=== PATIENT | female | born 1990 | race Hispanic/Latino ===

== ENCOUNTER 2016-05-22 10:48 | Emergency (ER) | payer OTHER ==
[2016-05-22] MEDS ORDERED: METOCLOPRAMIDE INJ 10MG/2ML VIAL (J2765) As Ordered ONE (11:29)
[2016-05-22 12:08] LABS: MEAN CORPUSCULAR HEMOGLOBIN 32.3 pg (27.0-33.0); MEAN CORPUSCULAR HGB CONC 35.3 g/dl (32.0-36.5); MEAN CORPUSCULAR VOLUME 91.6 fl (80.0-96.0); WHITE BLOOD COUNT 10.4 K/mm3 (4.0-10.0)
[2016-05-22 12:29] LABS: AMYLASE 44 U/L (25-115)
[2016-05-22 12:47] LABS: ALBUMIN 3.8 GM/DL (3.2-5.2); ALBUMIN/GLOBULIN RATIO 1.09 (1.00-1.93); ALKALINE PHOSPHATASE 64 U/L (45-117); ALT/SGPT 28 U/L (12-78); ANION GAP 10 MEQ/L (8-16); AST/SGOT 8 U/L (15-37); BILIRUBIN,TOTAL 0.5 MG/DL (0.2-1.0); BLOOD UREA NITROGEN 6 MG/DL (7-18); CALCIUM LEVEL 8.8 MG/DL (8.5-10.1); CARBON DIOXIDE LEVEL 23 MEQ/L (21-32); CHLORIDE LEVEL 106 MEQ/L (98-107); CREATININE FOR GFR 0.54 MG/DL (0.55-1.02); GLOMERULAR FILTRATION RATE > 60.0 (>60); GLUCOSE, FASTING 85 MG/DL (70-105); HCG, SERUM QUANTITATIVE 62819 MIU/ML; POTASSIUM SERUM 3.8 MEQ/L (3.5-5.1); SODIUM LEVEL 139 MEQ/L (136-145); TOTAL PROTEIN 7.3 GM/DL (6.4-8.2)
--- NOTE | 2016-05-22 12:54 | REP ---
Clinical: Dating and viability. Technique: Abdominal pain Findings: Single live early intrauterine is appreciated. Gestational sac with yolk sac and pole identified. [place]-rump length of this is 4.1 cm corresponds to 11 weeks 0 days gestational age with estimated date of delivery 12/11/2016. heart rate equals 160 beats per minute. Images suggest midgut herniation possibly herniation into the base of the umbilical cord. Follow-up examination is then is recommended. Impression: Single live early intrauterine at 11 weeks 0 days gestational age. Findings suggesting midgut herniation. Follow-up is recommended. Signed by Ryan Reynolds MD 05/22/2016 12:45 P
[2016-05-22] MEDS ORDERED: NITROFURANTOIN (MACROBID) 100 MG CAP As Ordered ONE (13:59)
--- NOTE | 2016-05-22 14:09 | EDDOCDS ---
Physician Documentation [facility] Name: Kenton Ng Age: 26 yrs Sex: Female : 1990 Arrival Date: 05/22/2016 Time: 10:48 Bed I3 / M3 Private MD: Kanu [facility] Disposition: 05/22/16 13:39 Discharged to Home/Self Care. 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 - Condition is Stable. - Discharge Instructions: Medicines During , First Trimester of , Dqof-ok-Fkby, Nausea and Vomiting, Kntw-oh-Orbu, Urinary Tract Infection, Vwuv-qv-Anko, Abdominal Pain During , Srte-xw-Ynlp, and Urinary Tract Infection. - Prescriptions for Reglan 10 mg Oral Tablet - take 1 tablet by ORAL route every 6 hours take 30 minutes before meals and at bedtime; 20 tablet. Macrobid 100 mg Oral Capsule - take 100 milligram by ORAL route every 12 hours for 10 days; 20 capsule. Tylenol 325 mg Oral Tablet - take 2 tablets by ORAL route every 6 hours as needed; 30 tablet. - Medication Reconciliation, Local Pharmacy Hours form. - Follow up: [facility] [place]; When: 1 - 2 days; Reason: Further diagnostic work-up, Recheck today's complaints, Continuance of care. Follow up: Emergency Department; Reason: Worsening of conditions. - Problem is new. - Symptoms have improved. Historical: - Allergies: PENICILLINS; - Home Meds: 1. Vitamin Oral tab 1 tab once daily - PMHx: none; - PSHx: none; - Social history: Smoking status: Patient states was never smoker of tobacco. Preferred Language: Tamaz[place], The patient speaks a little Upper Sorbian. - Family history: Not pertinent. - : The pt / caregiver states he / she is not on anticoagulants. Home medication list is obtained from the patient. - Exposure Risk Screening:: None identified. 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 ef1 11:09 Undress patient appropriately for examination ordered. ef1 11:09 Metoclopramide 10 mg IV at 40 mg/hr once over 15 mins ordered. ef1 11:09 NS 0.9% 1000 ml IV at bolus once ordered. ef1 11:10 Complete Blood Count Ordered. EDMS 11:10 Hcg, Serum Quantitative Ordered. EDMS 11:10 Urinalysis Ordered. EDMS 11:10 Complete Comphrensive Metabolic Ordered. EDMS 11:10 Urine Culture Ordered. EDMS 11:10 US 1st trimester Ordered. EDMS 11:10 Type & Screen Ordered. EDMS 11:23 Lipase Ordered. EDMS 11:23 Amylase Ordered. EDMS 12:43 [facility] Payment Agreement was scanned into [employer] and attached to record. jp5 12:43 Financial registration complete. jp5 13:35 Complete Blood Count Reviewed. ef1 13:35 Urinalysis Reviewed. ef1 13:35 Complete Comphrensive Metabolic Reviewed. ef1 13:35 Hcg, Serum Quantitative Reviewed. ef1 13:35 Type & Screen Reviewed. ef1 13:35 Lipase Reviewed. ef1 13:35 Amylase Reviewed. ef1 13:35 US 1st trimester Reviewed. ef1 13:37 Nitrofurantoin 100 mg PO once ordered. ef1 Administered Medications: 11:48 Drug: Metoclopramide 10 mg [metoclopramide 5 mg/mL injection solution] Route: IV; Rate: dls 40 mg/hr; Infused Over: 15 mins; Site: right antecubital; 13:01 Follow up: IV Status: Completed infusion dls 11:48 Drug: NS 0.9% 1000 ml [sodium chloride 0.9 % intravenous solution] Route: IV; Rate: dls bolus; Site: right antecubital; 13:01 Follow up: IV Status: Completed infusion dls 14:06 Drug: Nitrofurantoin 100 mg Route: PO; ms2 Signatures: Dispatcher [employer] EDMS Kingston Howard RN RN ms2 Khushbu Modi RN RN Arsh Tomlinson, RN RN mlb1 Edith Gill, PA-C PA-C ef1 Kinjal Kaplan jp5 The chart was reviewed and I authenticate all verbal orders and agree with the evaluation and treatment provided.Attachments: 12:43 [facility] Payment Agreement jp5 MTDD
--- NOTE | 2016-05-22 14:09 | EDDOCDS ---
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 Adult Sepsis mlb1 Screening: The patient does not have new or worsening altered mentation. Patient's respiratory rate is less than 22. Systolic blood pressure is greater than 100. Patient has a qSOFA score of 0- Negative Sepsis Screen. Suicide/Homicide risk assessment- the patient denies having any suicidal and/or homicidal ideations and does not present with any other emotional, behavioral or mental health complaints. Status: The patient is a dependent. Transition of care: patient was not received from another setting of care. 10:53 Acuity: AKIRA Level 3 mlb1 10:53 Method Of Arrival: Walkin/Carried/Asstd mlb1 Triage Assessment: 10:55 General: Appears in no apparent distress, Behavior is anxious, cooperative. Pain: mlb1 Denies pain. Pt Declines HIV testing. GI: Reports nausea, vomiting. 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 Vitamin Oral tab 1 tab once daily - PMHx: none; - PSHx: none; - Social history: Smoking status: Patient states was never smoker of tobacco. Preferred Language: French, The patient speaks a little Northern Irish. - Family history: Not pertinent. - : The pt / caregiver states he / she is not on anticoagulants. Home medication list is obtained from the patient. - Exposure Risk Screening:: None identified. Screenin:51 Screening information is obtained from the patient. Fall risk: No risks identified. dls Assistance ADL's: requires no assistance with activities of daily living. Abuse/DV Screen: The patient / caregiver reports he/she is: not in a situation that causes fear, pain or injury. Nutritional screening: No deficits noted. Advance Directives: Currently, there is no health care proxy. There is no active DNR order. There is no living will. There is no Power of General Dentist. Advance directive information has not previously been placed in an [facility] medical record. home support is adequate. Assessment: 11:50 General: Appears slender, uncomfortable, well developed, well nourished, well groomed, dls Behavior is cooperative. Neurological: No deficits noted. EENT: No deficits noted. Cardiovascular: No deficits noted. Respiratory: No deficits noted. GI: Abdomen is flat, Pt is actively vomiting clear fluid, Bowel sounds present X 4 quads. Abd is non tender X 4 quads Reports nausea, vomiting. : No deficits noted. Derm: No deficits noted. Musculoskeletal: No deficits noted. 14:06 Adult Sepsis Screening: The patient does not have new or worsening altered mentation. ms2 Patient's respiratory rate is less than 22. Systolic blood pressure is greater than 100. Patient has a qSOFA score of 0- Negative Sepsis Screen. General: Appears in no apparent distress. Pain: Denies pain. Neurological: Level of Consciousness is awake, alert, obeys commands. Respiratory: No deficits noted. Airway is patent Respiratory effort is even, unlabored, Respiratory pattern is regular, symmetrical. Derm: Skin is pink, warm & dry. Musculoskeletal: Range of motion intact in all extremities. Vital Signs: 10:49 BP 121 / 74; Pulse 80; Resp 18; Temp 96.0(O); Pulse Ox 100% on R/A; Weight 52.62 kg (R);elp 13:31 BP 96 / 55; Pulse 71; Resp 20; Temp 98.3(O); Pulse Ox 100% ; Pain 0/10; ls3 Vitals: 10:49 Log In Time: May 22, 2016 at 10:47. elp ED Course: 10:49 Patient visited by Zonia Powell PCA. elp 10:49 RALPH Bobby is Private Physician. elp 10:49 Patient moved to Waiting elp 10:51 Patient visited by Zonia Powell PCA. elp 10:51 Patient moved to Pre RCE elp 10:52 Patient moved to Triage 2 mlb1 10:53 Patient visited by Arsh Pastor RN. mlb1 10:53 Triage Initiated mlb1 10:57 Patient visited by Arsh Pastor RN. mlb1 10:59 Edith Gill [facility]C [facility]. ef1 10:59 Mariama Davila MD is Attending Physician. ef1 11:01 Patient visited by Edith Gill PA-C. ef1 11:14 Patient moved to I3 / M3 rs6 11:48 Patient visited by Edith Gill PA-C. ef1 11:48 Amylase Sent. dls 11:48 Lipase Sent. dls 11:48 Type & Screen Sent. dls 11:48 Complete Comphrensive Metabolic Sent. dls 11:49 Complete Blood Count Sent. dls 11:49 Hcg, Serum Quantitative Sent. dls 11:51 The patient / caregiver is instructed regarding the plan of care and ED course. dls 11:51 Inserted saline lock: 20 gauge in right antecubital area and blood collected. The dls patient tolerated the procedure well. No procedures done that require assistance. 12:01 Patient moved to Ultrasound hgl 12:17 Patient moved to I3 / M3 hgl 12:20 Patient visited by Edith Gill PA-C. ef1 12:43 [facility] Payment Agreement was scanned into [employer] and attached to record. jp5 12:55 US 1st trimester Returned. EDMS 13:07 Patient visited by Edith Glil PA-C. ef1 13:35 Patient visited by Edith Gill PA-C. ef1 13:39 Keily Lam, OB is Referral Physician. ef1 14:05 Patient visited by Kingston Howard RN. ms2 14:07 The patient / caregiver is instructed regarding the plan of care and ED course. ms2 14:07 Discontinued IV intact, bleeding controlled, pressure dressing applied, No ms2 redness/swelling at site. Administered Medications: 11:48 Drug: Metoclopramide 10 mg [metoclopramide 5 mg/mL injection solution] Route: IV; Rate: dls 40 mg/hr; Infused Over: 15 mins; Site: right antecubital; 13:01 Follow up: IV Status: Completed infusion dls 11:48 Drug: NS 0.9% 1000 ml [sodium chloride 0.9 % intravenous solution] Route: IV; Rate: dls bolus; Site: right antecubital; 13:01 Follow up: IV Status: Completed infusion dls 14:06 Drug: Nitrofurantoin 100 mg Route: PO; ms2 Intake: 14:06 PO: 120.00ml (Water); IV: 1000.00ml (NS); Total: 1120.00ml. ms2 14:06 voided x1 in ed ms2 Order Results: Lab Order: Complete Blood Count; SPEC'M 05/22/16 11:45 Test: WHITE BLOOD COUNT; Value: 10.4; Range: 4.0-10.0; Abnormal: Above high normal; Units: K/mm3; Status: F Test: RED BLOOD COUNT; Value: 3.88; Range: 4.00-5.40; Abnormal: Below low normal; Units: M/mm3; Status: F Test: HEMOGLOBIN; Value: 12.5; Range: 12.0-16.0; Units: g/dl; Status: F Test: HEMATOCRIT; Value: 35.6; Range: 36.0-47.0; Abnormal: Below low normal; Units: %; Status: F Test: MEAN CORPUSCULAR VOLUME; Value: 91.6; Range: 80.0-96.0; Units: fl; Status: F Test: MEAN CORPUSCULAR HEMOGLOBIN; Value: 32.3; Range: 27.0-33.0; Units: pg; Status: F Test: MEAN CORPUSCULAR HGB CONC; Value: 35.3; Range: 32.0-36.5; Units: g/dl; Status: F Test: RED CELL DISTRIBUTION WIDTH; Value: 13.0; Range: 11.5-14.5; Units: %; Status: F Test: PLATELET COUNT, AUTOMATED; Value: 171; Range: 150-450; Units: k/mm3; Status: F Lab Order: Hcg, Serum Quantitative; SPEC'M 05/22/16 11:45 Test: HCG, SERUM QUANTITATIVE; Value: 14118; Units: MIU/ML; Status: F Test Note: ; GESTATIONAL AGE APPROXIMATE HCG RANGE (MIU/ML) 0.2-1 WEEK 5-50 1-2 WEEKS 50-500 2-3 WEEKS 100-5,000 3-4 WEEKS 500-10,000 4-5 WEEKS 1,000-50,000 5-6 WEEKS 10,000-100,000 6-8 WEEKS 15,000-200,000 2-3 MONTHS 10,000-100,000 NON FEMALES LESS THAN 3.0 Patient samples may contain human heterophilic antibodies that could react with immunoassays to give falsely elevated or depressed results. This assay has been designed to minimize interference from heterophilic antibodies. Elevated hCG levels have also been associated with trophoblastic disease and nontrophoblastic neoplasms. The possibility of having these diseases should be considered before a diagnosis of is made. This test is not intended for use as a surrogate marker for aiding in the diagnosis or monitoring the treatment of cancer patients. Siemens ResearchGate methodology. Lab Order: Urinalysis; SPEC'M 05/22/16 11:14 Test: APPEARANCE, URINE; Value: HAZY; Range: CLEAR; Status: F Test: COLOR, URINE; Value: FABRICE; Range: YELLOW; Status: F Test: PH,URINE; Value: 7.0; Range: 5.0-9.0; Units: UNITS; Status: F Test: SPECIFIC GRAVITY URINE AUTO; Value: 1.027; Range: 1.002-1.035; Status: F Test: PROTEIN, URINE AUTO; Value: 1+; Range: NEGATIVE; Abnormal: Above high normal; Units: mg/dL; Status: F Test: GLUCOSE, URINE (UA) AUTO; Value: NEGATIVE; Range: NEGATIVE; Units: mg/dL; Status: F Test: KETONE, URINE AUTO; Value: TRACE; Range: NEGATIVE; Abnormal: Above high normal; Units: mg/dL; Status: F Test: UROBILINOGEN, URINE AUTO; Value: 0.2; Range: 0.0-2.0; Units: mg/dL; Status: F Test: BILIRUBIN, URINE AUTO; Value: NEGATIVE; Range: NEGATIVE; Status: F Test: NITRITE, URINE AUTO; Value: NEGATIVE; Range: NEGATIVE; Status: F Test: LEUKOCYTE ESTERASE, URINE AUTO; Value: 2+; Range: NEGATIVE; Abnormal: Above high normal; Status: F Test: BLOOD, URINE BLOOD; Value: NEGATIVE; Range: NEGATIVE; Status: F Test: WBC, URINE AUTO; Value: 1; Range: 0-3; Units: /HPF; Status: F Test: RBC, URINE AUTO; Value: 2; Range: 0-3; Units: /HPF; Status: F Test: BACTERIA, URINE AUTO; Value: NEGATIVE; Range: NEGATIVE; Status: F Test: SQUAMOUS EPITHELIAL CELL UR AU; Value: 17; Range: 0-6; Units: /HPF; Status: F Test: MUCUS, URINE; Value: SMALL; Range: NEGATIVE; Status: F Test: HYALINE CAST, URINE AUTO; Value: 0; Range: 0-1; Units: /LPF; Status: F Lab Order: Complete Comphrensive Metabolic; SPEC'M 05/22/16 11:45 Test: GLUCOSE, FASTING; Value: 85; Range: 70-105; Units: MG/DL; Status: F Test: BLOOD UREA NITROGEN; Value: 6; Range: 7-18; Abnormal: Below low normal; Units: MG/DL; Status: F Test: CREATININE FOR GFR; Value: 0.54; Range: 0.55-1.02; Abnormal: Below low normal; Units: MG/DL; Status: F Test: GLOMERULAR FILTRATION RATE; Value: > 60.0; Range: >60; Status: F Test: SODIUM LEVEL; Value: 139; Range: 136-145; Units: MEQ/L; Status: F Test: POTASSIUM SERUM; Value: 3.8; Range: 3.5-5.1; Units: MEQ/L; Status: F Test: CHLORIDE LEVEL; Value: 106; Range: 98-107; Units: MEQ/L; Status: F Test: CARBON DIOXIDE LEVEL; Value: 23; Range: 21-32; Units: MEQ/L; Status: F Test: ANION GAP; Value: 10; Range: 8-16; Units: MEQ/L; Status: F Test: CALCIUM LEVEL; Value: 8.8; Range: 8.5-10.1; Units: MG/DL; Status: F Test: AST/SGOT; Value: 8; Range: 15-37; Abnormal: Below low normal; Units: U/L; Status: F Test: ALT/SGPT; Value: 28; Range: 12-78; Units: U/L; Status: F Test: ALKALINE PHOSPHATASE; Value: 64; Range: 45-117; Units: U/L; Status: F Test: BILIRUBIN,TOTAL; Value: 0.5; Range: 0.2-1.0; Units: MG/DL; Status: F Test: TOTAL PROTEIN; Value: 7.3; Range: 6.4-8.2; Units: GM/DL; Status: F Test: ALBUMIN; Value: 3.8; Range: 3.2-5.2; Units: GM/DL; Status: F Test: ALBUMIN/GLOBULIN RATIO; Value: 1.09; Range: 1.00-1.93; Status: F Test Note: ; Units are mL/min/1.73 m2 Chronic Kidney Disease Staging per NKF: Stage I & II GFR >=60 Normal to Mildly Decreased Stage III GFR 30-59 Moderately Decreased Stage IV GFR 15-29 Severely Decreased Stage V GFR <15 Very Little GFR Left ESRD GFR <15 on TOOL SETTER APPRENTICE Lab Order: Type & Screen; SPEC'M 05/22/16 11:45 Test: BLOOD TYPE; Value: O POS; Status: F Test: AB SCREEN (INDIRECT JANICE)GEL; Value: NEGATIVE; Status: F Lab Order: Lipase; SPEC'M 05/22/16 11:45 Test: LIPASE; Value: 96; Range: 73-393; Units: U/L; Status: F Lab Order: Amylase; SPEC'M 05/22/16 11:45 Test: AMYLASE; Value: 44; Range: 25-115; Units: U/L; Status: F Radiology Order: US 1st trimester Test: US 1st trimester REASON FOR EXAMINATION: pelvic pain, ; Clinical: Dating and viability.; ; Technique: Abdominal pain; ; Findings:; Single live early intrauterine is appreciated. Gestational sac with; yolk sac and pole identified. [place]-rump length of this is 4.1 cm; corresponds to 11 weeks 0 days gestational age with estimated date of delivery; 12/11/2016. heart rate equals 160 beats per minute.; ; Images suggest midgut herniation possibly herniation into the base of the; umbilical cord. Follow-up examination is then is recommended.; ; Impression:; Single live early intrauterine at 11 weeks 0 days gestational age.; Findings suggesting midgut herniation. Follow-up is recommended.; ; ; ; Signed by; Ryan Reynolds MD 05/22/2016 12:45 P; Outcome: 13:39 Discharge ordered by Provider. ef1 14:07 Discharge Assessment: patient administered narcotics - no. The following High Risk ms2 Discharge criteria are identified: None. Discharged to home ambulatory, with parent. Condition: stable. Discharge instructions given to patient, Instructed on discharge instructions, follow up and referral plans. medication usage, Demonstrated understanding of instructions, medications, Pt was receptive of discharge instructions/ teaching. Prescriptions given X 3 faxed. No special radiology studies were completed. Property sent home with patient. 14:08 Patient left the ED. ms2 Signatures: Dispatcher [employer] EDMS Kingston Howard RN RN ms2 Khushbu Modi RN RN dls Arsh Pastor RN RN mlb1 Edith Gill, PA-C PA-C ef1 Ly, Mariano hgl Zonia Powell, OCCUPATIONAL THERAPY TECHNICIAN OCCUPATIONAL THERAPY TECHNICIAN elp Amber Padilla, OCCUPATIONAL THERAPY TECHNICIAN OCCUPATIONAL THERAPY TECHNICIAN rs6 Kinjal Kaplan jp5 Nimisha Lizarraga, OCCUPATIONAL THERAPY TECHNICIAN OCCUPATIONAL THERAPY TECHNICIAN ls3 MTDLivier
--- NOTE | 2016-05-24 15:09 | EDDOCDS ---
Physician Documentation [facility] Name: Kenton Ng Age: 26 yrs Sex: Female : 1990 Arrival Date: 05/22/2016 Time: 10:48 Bed I3 / M3 Private MD: Kanu [facility] Disposition: 05/22/16 13:39 Discharged to Home/Self Care. 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 - Condition is Stable. - Discharge Instructions: Medicines During , First Trimester of , Hbbp-fo-Ayyq, Nausea and Vomiting, Fwtp-if-Zyye, Urinary Tract Infection, Qbjg-tw-Adkp, Abdominal Pain During , Vonp-ad-Ubar, and Urinary Tract Infection. - Prescriptions for Reglan 10 mg Oral Tablet - take 1 tablet by ORAL route every 6 hours take 30 minutes before meals and at bedtime; 20 tablet. Macrobid 100 mg Oral Capsule - take 100 milligram by ORAL route every 12 hours for 10 days; 20 capsule. Tylenol 325 mg Oral Tablet - take 2 tablets by ORAL route every 6 hours as needed; 30 tablet. - Medication Reconciliation, Local Pharmacy Hours form. - Follow up: [facility] [place]; When: 1 - 2 days; Reason: Further diagnostic work-up, Recheck today's complaints, Continuance of care. Follow up: Emergency Department; Reason: Worsening of conditions. - Problem is new. - Symptoms have improved. Historical: - Allergies: PENICILLINS; - Home Meds: 1. Vitamin Oral tab 1 tab once daily - PMHx: none; - PSHx: none; - Social history: Smoking status: Patient states was never smoker of tobacco. Preferred Language: Azeri, The patient speaks a little Palestinian. - Family history: Not pertinent. - : The pt / caregiver states he / she is not on anticoagulants. Home medication list is obtained from the patient. - Exposure Risk Screening:: None identified. 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 ef1 11:09 Undress patient appropriately for examination ordered. ef1 11:09 Metoclopramide 10 mg IV at 40 mg/hr once over 15 mins ordered. ef1 11:09 NS 0.9% 1000 ml IV at bolus once ordered. ef1 11:10 Complete Blood Count Ordered. EDMS 11:10 Hcg, Serum Quantitative Ordered. EDMS 11:10 Urinalysis Ordered. EDMS 11:10 Complete Comphrensive Metabolic Ordered. EDMS 11:10 Urine Culture Ordered. EDMS 11:10 US 1st trimester Ordered. EDMS 11:10 Type & Screen Ordered. EDMS 11:23 Lipase Ordered. EDMS 11:23 Amylase Ordered. EDMS 12:43 [facility] Payment Agreement was scanned into [email or web address] and attached to record. jp5 12:43 Financial registration complete. jp5 13:35 Complete Blood Count Reviewed. ef1 13:35 Urinalysis Reviewed. ef1 13:35 Complete Comphrensive Metabolic Reviewed. ef1 13:35 Hcg, Serum Quantitative Reviewed. ef1 13:35 Type & Screen Reviewed. ef1 13:35 Lipase Reviewed. ef1 13:35 Amylase Reviewed. ef1 13:35 US 1st trimester Reviewed. ef1 13:37 Nitrofurantoin 100 mg PO once ordered. ef1 15:31 T-Sheet-- Draft Copy was scanned into [email or web address] and attached to record. klr 05/24 09:04 Radiology Report was scanned into [email or web address] and attached to record. gb Administered Medications: 05/22 11:48 Drug: Metoclopramide 10 mg [metoclopramide 5 mg/mL injection solution] Route: IV; Rate: dls 40 mg/hr; Infused Over: 15 mins; Site: right antecubital; 13:01 Follow up: IV Status: Completed infusion dls 11:48 Drug: NS 0.9% 1000 ml [sodium chloride 0.9 % intravenous solution] Route: IV; Rate: dls bolus; Site: right antecubital; 13:01 Follow up: IV Status: Completed infusion dls 14:06 Drug: Nitrofurantoin 100 mg Route: PO; ms2 Signatures: Dispatcher [employer] Kingston Yates RN RN ms2 Khushbu Modi RN RN dls Wandy Kumar, Alexandre Reg charito Pastor, Arsh Goldberg RN RN mlb1 Edith Gill PA-C PAKinjal Song jp5 Jagruti Berrios The chart was reviewed and I authenticate all verbal orders and agree with the evaluation and treatment provided.Attachments: 12:43 [facility] Payment Agreement jp5 15:31 T-Sheet-- Draft Copy klr Chart Complete MTDD
--- NOTE | 2016-05-24 15:09 | EDDOCDS ---
Physician Documentation [facility] Name: Kenton Ng Age: 26 yrs Sex: Female : 1990 Arrival Date: 05/22/2016 Time: 10:48 Bed I3 / M3 Private MD: Kanu [facility] [place] Disposition: 05/22/16 13:39 Discharged to Home/Self Care. 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 - Condition is Stable. - Discharge Instructions: Medicines During , First Trimester of , Mhaq-fk-Hteh, Nausea and Vomiting, Trkj-xo-Wczx, Urinary Tract Infection, Qhdz-vv-Rdhc, Abdominal Pain During , Fhtu-bw-Moof, and Urinary Tract Infection. - Prescriptions for Reglan 10 mg Oral Tablet - take 1 tablet by ORAL route every 6 hours take 30 minutes before meals and at bedtime; 20 tablet. Macrobid 100 mg Oral Capsule - take 100 milligram by ORAL route every 12 hours for 10 days; 20 capsule. Tylenol 325 mg Oral Tablet - take 2 tablets by ORAL route every 6 hours as needed; 30 tablet. - Medication Reconciliation, Local Pharmacy Hours form. - Follow up: [facility]; When: 1 - 2 days; Reason: Further diagnostic work-up, Recheck today's complaints, Continuance of care. Follow up: Emergency Department; Reason: Worsening of conditions. - Problem is new. - Symptoms have improved. Historical: - Allergies: PENICILLINS; - Home Meds: 1. Vitamin Oral tab 1 tab once daily - PMHx: none; - PSHx: none; - Social history: Smoking status: Patient states was never smoker of tobacco. Preferred Language: Luxembourgish, The patient speaks a little South African. - Family history: Not pertinent. - : The pt / caregiver states he / she is not on anticoagulants. Home medication list is obtained from the patient. - Exposure Risk Screening:: None identified. STEWARD/STEWARDESS SECOND: 05/22 10:56 LMP 02/12/2016, Verified, EDC 11/18/2016, Gestational age from LMP: 14 weeks 2 mlb1 days Vital Signs: 10:49 BP 121 / 74; Pulse 80; Resp 18; Temp 96.0(O); Pulse Ox 100% on R/A; Weight 52.62 kg / elp 116.01 lbs (R); 13:31 BP 96 / 55; Pulse 71; Resp 20; Temp 98.3(O); Pulse Ox 100% ; Pain 0/10; ls3 MDM: 11:09 IV Saline Lock ordered. ef1 11:09 Undress patient appropriately for examination ordered. ef1 11:09 Metoclopramide 10 mg IV at 40 mg/hr once over 15 mins ordered. ef1 11:09 NS 0.9% 1000 ml IV at bolus once ordered. ef1 11:10 Complete Blood Count Ordered. EDMS 11:10 Hcg, Serum Quantitative Ordered. EDMS 11:10 Urinalysis Ordered. EDMS 11:10 Complete Comphrensive Metabolic Ordered. EDMS 11:10 Urine Culture Ordered. EDMS 11:10 US 1st trimester Ordered. EDMS 11:10 Type & Screen Ordered. EDMS 11:23 Lipase Ordered. EDMS 11:23 Amylase Ordered. EDMS 12:43 [facility] [place] Payment Agreement was scanned into kompany and attached to record. jp5 12:43 Financial registration complete. jp5 13:35 Complete Blood Count Reviewed. ef1 13:35 Urinalysis Reviewed. ef1 13:35 Complete Comphrensive Metabolic Reviewed. ef1 13:35 Hcg, Serum Quantitative Reviewed. ef1 13:35 Type & Screen Reviewed. ef1 13:35 Lipase Reviewed. ef1 13:35 Amylase Reviewed. ef1 13:35 US 1st trimester Reviewed. ef1 13:37 Nitrofurantoin 100 mg PO once ordered. ef1 15:31 T-Sheet-- Draft Copy was scanned into kompany and attached to record. klr 05/24 09:04 Radiology Report was scanned into kompany and attached to record. gb Administered Medications: 05/22 11:48 Drug: Metoclopramide 10 mg [metoclopramide 5 mg/mL injection solution] Route: IV; Rate: dls 40 mg/hr; Infused Over: 15 mins; Site: right antecubital; 13:01 Follow up: IV Status: Completed infusion dls 11:48 Drug: NS 0.9% 1000 ml [sodium chloride 0.9 % intravenous solution] Route: IV; Rate: dls bolus; Site: right antecubital; 13:01 Follow up: IV Status: Completed infusion dls 14:06 Drug: Nitrofurantoin 100 mg Route: PO; ms2 Signatures: Dispatcher MedHost Kingston Yates RN RN ms2 Khushbu Modi RN RN dls Wandy Kumar, Alexandre Reg charito Pastor, Arsh Goldberg RN RN mlb1 Edith Gill PA-C PAKinjal Song jp5 Jagruti Berrios The chart was reviewed and I authenticate all verbal orders and agree with the evaluation and treatment provided.Attachments: 12:43 [facility] Payment Agreement jp5 15:31 T-Sheet-- Draft Copy klr Chart Complete MTDD
--- NOTE | 2016-05-24 15:09 | EDDOCDS ---
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 Adult Sepsis mlb1 Screening: The patient does not have new or worsening altered mentation. Patient's respiratory rate is less than 22. Systolic blood pressure is greater than 100. Patient has a qSOFA score of 0- Negative Sepsis Screen. Suicide/Homicide risk assessment- the patient denies having any suicidal and/or homicidal ideations and does not present with any other emotional, behavioral or mental health complaints. Status: The patient is a dependent. Transition of care: patient was not received from another setting of care. 10:53 Acuity: AKIRA Level 3 mlb1 10:53 Method Of Arrival: Walkin/Carried/Asstd mlb1 Triage Assessment: 10:55 General: Appears in no apparent distress, Behavior is anxious, cooperative. Pain: mlb1 Denies pain. Pt Declines HIV testing. GI: Reports nausea, vomiting. 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 Vitamin Oral tab 1 tab once daily - PMHx: none; - PSHx: none; - Social history: Smoking status: Patient states was never smoker of tobacco. Preferred Language: Kiswahili, The patient speaks a little Sierra Leonean. - Family history: Not pertinent. - : The pt / caregiver states he / she is not on anticoagulants. Home medication list is obtained from the patient. - Exposure Risk Screening:: None identified. Screenin:51 Screening information is obtained from the patient. Fall risk: No risks identified. dls Assistance ADL's: requires no assistance with activities of daily living. Abuse/DV Screen: The patient / caregiver reports he/she is: not in a situation that causes fear, pain or injury. Nutritional screening: No deficits noted. Advance Directives: Currently, there is no health care proxy. There is no active DNR order. There is no living will. There is no Power of Music Journalist. Advance directive information has not previously been placed in an [facility] medical record. home support is adequate. Assessment: 11:50 General: Appears slender, uncomfortable, well developed, well nourished, well groomed, dls Behavior is cooperative. Neurological: No deficits noted. EENT: No deficits noted. Cardiovascular: No deficits noted. Respiratory: No deficits noted. GI: Abdomen is flat, Pt is actively vomiting clear fluid, Bowel sounds present X 4 quads. Abd is non tender X 4 quads Reports nausea, vomiting. : No deficits noted. Derm: No deficits noted. Musculoskeletal: No deficits noted. 14:06 Adult Sepsis Screening: The patient does not have new or worsening altered mentation. ms2 Patient's respiratory rate is less than 22. Systolic blood pressure is greater than 100. Patient has a qSOFA score of 0- Negative Sepsis Screen. General: Appears in no apparent distress. Pain: Denies pain. Neurological: Level of Consciousness is awake, alert, obeys commands. Respiratory: No deficits noted. Airway is patent Respiratory effort is even, unlabored, Respiratory pattern is regular, symmetrical. Derm: Skin is pink, warm & dry. Musculoskeletal: Range of motion intact in all extremities. Vital Signs: 10:49 BP 121 / 74; Pulse 80; Resp 18; Temp 96.0(O); Pulse Ox 100% on R/A; Weight 52.62 kg (R);elp 13:31 BP 96 / 55; Pulse 71; Resp 20; Temp 98.3(O); Pulse Ox 100% ; Pain 0/10; ls3 Vitals: 10:49 Log In Time: May 22, 2016 at 10:47. elp ED Course: 10:49 Patient visited by Zonia Powell PCA. elp 10:49 RALPH Bobby is Private Physician. elp 10:49 Patient moved to Waiting elp 10:51 Patient visited by Zonia Powell PCA. elp 10:51 Patient moved to Pre RCE elp 10:52 Patient moved to Triage 2 mlb1 10:53 Patient visited by Arsh Pastor RN. mlb1 10:53 Triage Initiated mlb1 10:57 Patient visited by Arsh Pastor RN. mlb1 10:59 Edith Gill PA-C is PHCP. ef1 10:59 Mariama Davila MD is Attending Physician. ef1 11:01 Patient visited by Edith Gill PA-C. ef1 11:14 Patient moved to I3 / M3 rs6 11:48 Patient visited by Edith Gill PA-C. ef1 11:48 Amylase Sent. dls 11:48 Lipase Sent. dls 11:48 Type & Screen Sent. dls 11:48 Complete Comphrensive Metabolic Sent. dls 11:49 Complete Blood Count Sent. dls 11:49 Hcg, Serum Quantitative Sent. dls 11:51 The patient / caregiver is instructed regarding the plan of care and ED course. dls 11:51 Inserted saline lock: 20 gauge in right antecubital area and blood collected. The dls patient tolerated the procedure well. No procedures done that require assistance. 12:01 Patient moved to Ultrasound hgl 12:17 Patient moved to I3 / M3 hgl 12:20 Patient visited by Edith Gill PA-C. ef1 12:43 [facility] Payment Agreement was scanned into [employer] and attached to record. jp5 12:55 US 1st trimester Returned. EDMS 13:07 Patient visited by Edith Gill PA-C. ef1 13:35 Patient visited by Edith Gill PA-C. ef1 13:39 [place], OB is Referral Physician. ef1 14:05 Patient visited by Kingston Howard RN. ms2 14:07 The patient / caregiver is instructed regarding the plan of care and ED course. ms2 14:07 Discontinued IV intact, bleeding controlled, pressure dressing applied, No ms2 redness/swelling at site. 15:31 T-Sheet-- Draft Copy was scanned into Sovex and attached to record. klr 05/24 09:04 Radiology Report was scanned into Sovex and attached to record. gb Administered Medications: 05/22 11:48 Drug: Metoclopramide 10 mg [metoclopramide 5 mg/mL injection solution] Route: IV; Rate: dls 40 mg/hr; Infused Over: 15 mins; Site: right antecubital; 13:01 Follow up: IV Status: Completed infusion dls 11:48 Drug: NS 0.9% 1000 ml [sodium chloride 0.9 % intravenous solution] Route: IV; Rate: dls bolus; Site: right antecubital; 13:01 Follow up: IV Status: Completed infusion dls 14:06 Drug: Nitrofurantoin 100 mg Route: PO; ms2 Intake: 14:06 PO: 120.00ml (Water); IV: 1000.00ml (NS); Total: 1120.00ml. ms2 14:06 voided x1 in ed ms2 Order Results: Lab Order: Complete Blood Count; SPEC'M 05/22/16 11:45 Test: WHITE BLOOD COUNT; Value: 10.4; Range: 4.0-10.0; Abnormal: Above high normal; Units: K/mm3; Status: F Test: RED BLOOD COUNT; Value: 3.88; Range: 4.00-5.40; Abnormal: Below low normal; Units: M/mm3; Status: F Test: HEMOGLOBIN; Value: 12.5; Range: 12.0-16.0; Units: g/dl; Status: F Test: HEMATOCRIT; Value: 35.6; Range: 36.0-47.0; Abnormal: Below low normal; Units: %; Status: F Test: MEAN CORPUSCULAR VOLUME; Value: 91.6; Range: 80.0-96.0; Units: fl; Status: F Test: MEAN CORPUSCULAR HEMOGLOBIN; Value: 32.3; Range: 27.0-33.0; Units: pg; Status: F Test: MEAN CORPUSCULAR HGB CONC; Value: 35.3; Range: 32.0-36.5; Units: g/dl; Status: F Test: RED CELL DISTRIBUTION WIDTH; Value: 13.0; Range: 11.5-14.5; Units: %; Status: F Test: PLATELET COUNT, AUTOMATED; Value: 171; Range: 150-450; Units: k/mm3; Status: F Lab Order: Hcg, Serum Quantitative; SPEC'M 05/22/16 11:45 Test: HCG, SERUM QUANTITATIVE; Value: 52352; Units: MIU/ML; Status: F Test Note: ; GESTATIONAL AGE APPROXIMATE HCG RANGE (MIU/ML) 0.2-1 WEEK 5-50 1-2 WEEKS 50-500 2-3 WEEKS 100-5,000 3-4 WEEKS 500-10,000 4-5 WEEKS 1,000-50,000 5-6 WEEKS 10,000-100,000 6-8 WEEKS 15,000-200,000 2-3 MONTHS 10,000-100,000 NON FEMALES LESS THAN 3.0 Patient samples may contain human heterophilic antibodies that could react with immunoassays to give falsely elevated or depressed results. This assay has been designed to minimize interference from heterophilic antibodies. Elevated hCG levels have also been associated with trophoblastic disease and nontrophoblastic neoplasms. The possibility of having these diseases should be considered before a diagnosis of is made. This test is not intended for use as a surrogate marker for aiding in the diagnosis or monitoring the treatment of cancer patients. Siemens [place] methodology. Lab Order: Urinalysis; SPEC'M 05/22/16 11:14 Test: APPEARANCE, URINE; Value: HAZY; Range: CLEAR; Status: F Test: COLOR, URINE; Value: FABRICE; Range: YELLOW; Status: F Test: PH,URINE; Value: 7.0; Range: 5.0-9.0; Units: UNITS; Status: F Test: SPECIFIC GRAVITY URINE AUTO; Value: 1.027; Range: 1.002-1.035; Status: F Test: PROTEIN, URINE AUTO; Value: 1+; Range: NEGATIVE; Abnormal: Above high normal; Units: mg/dL; Status: F Test: GLUCOSE, URINE (UA) AUTO; Value: NEGATIVE; Range: NEGATIVE; Units: mg/dL; Status: F Test: KETONE, URINE AUTO; Value: TRACE; Range: NEGATIVE; Abnormal: Above high normal; Units: mg/dL; Status: F Test: UROBILINOGEN, URINE AUTO; Value: 0.2; Range: 0.0-2.0; Units: mg/dL; Status: F Test: BILIRUBIN, URINE AUTO; Value: NEGATIVE; Range: NEGATIVE; Status: F Test: NITRITE, URINE AUTO; Value: NEGATIVE; Range: NEGATIVE; Status: F Test: LEUKOCYTE ESTERASE, URINE AUTO; Value: 2+; Range: NEGATIVE; Abnormal: Above high normal; Status: F Test: BLOOD, URINE BLOOD; Value: NEGATIVE; Range: NEGATIVE; Status: F Test: WBC, URINE AUTO; Value: 1; Range: 0-3; Units: /HPF; Status: F Test: RBC, URINE AUTO; Value: 2; Range: 0-3; Units: /HPF; Status: F Test: BACTERIA, URINE AUTO; Value: NEGATIVE; Range: NEGATIVE; Status: F Test: SQUAMOUS EPITHELIAL CELL UR AU; Value: 17; Range: 0-6; Units: /HPF; Status: F Test: MUCUS, URINE; Value: SMALL; Range: NEGATIVE; Status: F Test: HYALINE CAST, URINE AUTO; Value: 0; Range: 0-1; Units: /LPF; Status: F Lab Order: Urine Culture; SPEC'M 05/22/16 11:14 Test: URINE CULTURE; Value: URINE CULTURE RESULT NO GROWTH; Status: F Lab Order: Complete Comphrensive Metabolic; SPEC'M 05/22/16 11:45 Test: GLUCOSE, FASTING; Value: 85; Range: 70-105; Units: MG/DL; Status: F Test: BLOOD UREA NITROGEN; Value: 6; Range: 7-18; Abnormal: Below low normal; Units: MG/DL; Status: F Test: CREATININE FOR GFR; Value: 0.54; Range: 0.55-1.02; Abnormal: Below low normal; Units: MG/DL; Status: F Test: GLOMERULAR FILTRATION RATE; Value: > 60.0; Range: >60; Status: F Test: SODIUM LEVEL; Value: 139; Range: 136-145; Units: MEQ/L; Status: F Test: POTASSIUM SERUM; Value: 3.8; Range: 3.5-5.1; Units: MEQ/L; Status: F Test: CHLORIDE LEVEL; Value: 106; Range: 98-107; Units: MEQ/L; Status: F Test: CARBON DIOXIDE LEVEL; Value: 23; Range: 21-32; Units: MEQ/L; Status: F Test: ANION GAP; Value: 10; Range: 8-16; Units: MEQ/L; Status: F Test: CALCIUM LEVEL; Value: 8.8; Range: 8.5-10.1; Units: MG/DL; Status: F Test: AST/SGOT; Value: 8; Range: 15-37; Abnormal: Below low normal; Units: U/L; Status: F Test: ALT/SGPT; Value: 28; Range: 12-78; Units: U/L; Status: F Test: ALKALINE PHOSPHATASE; Value: 64; Range: 45-117; Units: U/L; Status: F Test: BILIRUBIN,TOTAL; Value: 0.5; Range: 0.2-1.0; Units: MG/DL; Status: F Test: TOTAL PROTEIN; Value: 7.3; Range: 6.4-8.2; Units: GM/DL; Status: F Test: ALBUMIN; Value: 3.8; Range: 3.2-5.2; Units: GM/DL; Status: F Test: ALBUMIN/GLOBULIN RATIO; Value: 1.09; Range: 1.00-1.93; Status: F Test Note: ; Units are mL/min/1.73 m2 Chronic Kidney Disease Staging per NKF: Stage I & II GFR >=60 Normal to Mildly Decreased Stage III GFR 30-59 Moderately Decreased Stage IV GFR 15-29 Severely Decreased Stage V GFR <15 Very Little GFR Left ESRD GFR <15 on AVIATION SURVIVAL TECHNICIAN Lab Order: Type & Screen; SPEC'M 05/22/16 11:45 Test: BLOOD TYPE; Value: O POS; Status: F Test: AB SCREEN (INDIRECT JANICE)GEL; Value: NEGATIVE; Status: F Lab Order: Lipase; SPEC'M 05/22/16 11:45 Test: LIPASE; Value: 96; Range: 73-393; Units: U/L; Status: F Lab Order: Amylase; SPEC'M 05/22/16 11:45 Test: AMYLASE; Value: 44; Range: 25-115; Units: U/L; Status: F Radiology Order: US 1st trimester Test: US 1st trimester REASON FOR EXAMINATION: pelvic pain, ; Clinical: Dating and viability.; ; Technique: Abdominal pain; ; Findings:; Single live early intrauterine is appreciated. Gestational sac with; yolk sac and pole identified. [place]-rump length of this is 4.1 cm; corresponds to 11 weeks 0 days gestational age with estimated date of delivery; 12/11/2016. heart rate equals 160 beats per minute.; ; Images suggest midgut herniation possibly herniation into the base of the; umbilical cord. Follow-up examination is then is recommended.; ; Impression:; Single live early intrauterine at 11 weeks 0 days gestational age.; Findings suggesting midgut herniation. Follow-up is recommended.; ; ; ; Signed by; Ryan Reynolds MD 05/22/2016 12:45 P; Outcome: 13:39 Discharge ordered by Provider. ef1 14:07 Discharge Assessment: patient administered narcotics - no. The following High Risk ms2 Discharge criteria are identified: None. Discharged to home ambulatory, with parent. Condition: stable. Discharge instructions given to patient, Instructed on discharge instructions, follow up and referral plans. medication usage, Demonstrated understanding of instructions, medications, Pt was receptive of discharge instructions/ teaching. Prescriptions given X 3 faxed. No special radiology studies were completed. Property sent home with patient. 14:08 Patient left the ED. ms2 Signatures: Dispatcher Med[employer] EDMS Kingston HowardRN RN ms2 Khushbu Modi RN RN dls Wandy Kumar, Reg Reg Arsh Montesinos RN RN mlb1 Edith Gill, PA-C PA-C ef1 Vanessa, Mariano hgZonia Elizabeth, DERRICK BUILDER DERRICK BUILDER elp Amber Padilla, DERRICK BUILDER DERRICK BUILDER rs6 Kinjal Kaplan jp5 Nimisha Lizarraga, DERRICK BUILDER DERRICK BUILDER ls3 Jagruti Berrios Chart Complete MTDD
== END 2016-05-22 14:08 | disposition home or self-care (01) ==
LOC: M ED 10:48
DX: O23.41 Unspecified infection of urinary tract in pregnancy, first trimester (principal); O21.9 Vomiting of pregnancy, unspecified; R10.84 Generalized abdominal pain; O99.611 Diseases of the digestive system complicating pregnancy, first trimester; K46.0 Unspecified abdominal hernia with obstruction, without gangrene; Z79.899 Other long term (current) drug therapy; Z88.0 Allergy status to penicillin; Z3A.11 11 weeks gestation of pregnancy
CPT/HCPCS: 36415; 76801; 80053; 81001; 82150; 83690; 84702; 85027; 86850; 86900; 86901; 87086; 96365; 99284; J2765

== ENCOUNTER 2016-12-18 01:55 | Outpatient (CLI) | payer OTHER ==
[~2016-12-18] VITALS: Ht 160 cm; Wt 64.0 kg
[2016-12-18] MEDS ORDERED: ACETAMINOPHEN TAB 650MG DOSE (2X325MG) As Ordered ONE (04:02)
[2016-12-18] MEDS ORDERED: diphenhydrAMINE 25 MG CAP As Ordered ONE (04:02)
[2016-12-18] MEDS ORDERED: BENA25CA4 PO (11:39)
[2016-12-18] MEDS ORDERED: ACET50TA PO (11:39)
== END 2016-12-18 04:00 | disposition home or self-care (01) ==
LOC: M LDO 01:55
PROVIDERS: ATTEND Obstetrics & Gynecology
DX: O47.1 False labor at or after 37 completed weeks of gestation (principal); Z3A.40 40 weeks gestation of pregnancy; Z88.0 Allergy status to penicillin

== ENCOUNTER 2016-12-18 11:17 | Inpatient (IN) | payer OTHER ==
[~2016-12-18] VITALS: Ht 160 cm; Wt 65.0 kg
[2016-12-18] VITALS (32 sets, daily range): BP systolic 91–128; BP diastolic 51–76
[2016-12-18] MEDS ORDERED: BENA25CA4 PO (11:39)
[2016-12-18] MEDS ORDERED: ACET50TA PO (11:39)
[2016-12-18] MEDS ORDERED: LACTATED RINGER'S 1000 ML IV STA (12:08)
[2016-12-18] MEDS ORDERED: LR 1,000 ML IV SCH (12:08)
[2016-12-18 12:23] LABS: BASO % 0.1 % (0.0-1.0); EOS # 0.1 K/mm3 (0.0-0.50); EOS % 0.5 % (0.0-3.0); LARGE UNSTAINED CELL # 0.1 K/mm3 (0.0-0.4); LARGE UNSTAINED CELL % 0.4 % (0.0-4.0); LYMPH # 1.4 K/mm3 (1.5-6.5); LYMPH % 9.4 % (24.0-44.0); MEAN CORPUSCULAR HEMOGLOBIN 28.8 pg (27.0-33.0); MEAN CORPUSCULAR HGB CONC 32.5 g/dl (32.0-36.5); MEAN CORPUSCULAR VOLUME 88.6 fl (80.0-96.0); MONO # 0.4 K/mm3 (0.0-0.8); MONO % 2.5 % (0.0-5.0); NEUTROPHILS # 12.8 K/mm3 (1.8-7.7); NEUTROPHILS % 87.1 % (36.0-66.0); PLATELET COUNT, AUTOMATED 176 k/mm3 (150-450); RED CELL DISTRIBUTION WIDTH 13.9 % (11.5-14.5); WHITE BLOOD COUNT 14.7 K/mm3 (4.0-10.0)
[2016-12-18] MEDS ORDERED: FENTANYL 2MCG/ML ROPIVACAINE 0.2% IN 0.9% NACL 200ML IVBAG As Ordered ONE (14:03)
[2016-12-18] MEDS ORDERED: LACTATED RINGER'S 1000 ML IV PRN (15:00)
[2016-12-18] MEDS ORDERED: FENTANYL/ROPIVACAINE/NACL BAG 200 ML EPIDURAL SCH (15:00)
[2016-12-18] MEDS ORDERED: EPIDURAL COMMENT XX SCH (15:00)
[2016-12-18] MEDS ORDERED: diphenhydrAMINE INJ 50MG/ML VIAL (J1200) IV PRN (15:00)
[2016-12-18] MEDS ORDERED: REFRIGERATOR IV KEYS XX PRN (15:00)
[2016-12-18] MEDS ORDERED: EPIDURAL/PCA KEYS XX PRN (15:00)
[2016-12-18] MEDS ORDERED: ONDANSETRON 4MG/2ML VIAL (J2405) IV PRN (15:00)
[2016-12-18] MEDS ORDERED: ePHEDrine SULFATE 25 MG/5 ML(5MG/ML) SYRINGE IV PRN (15:00)
[2016-12-18] MEDS ORDERED: NALOXONE INJ 0.4 MG/1 ML VIAL (J2310) IV PRN (15:00)
[2016-12-18] MEDS ORDERED: OXYTOCIN DRIP 30 UNITS in APPROPRIATE DILUENT 1 EA IV SCH (16:15)
[2016-12-19] VITALS (8 sets, daily range): BP systolic 101–124; BP diastolic 56–75
[2016-12-19 01:06] LABS: CORD GAS ABE V -5.8; CORD GAS HCO3 V 18.5 MEQ/L; CORD GAS O2 SAT V 59.3 %; CORD GAS PCO2 V 33.1 mmHg; CORD GAS PH V 7.365 UNITS; CORD GAS PO2 V 25.9 mmHg; CORD GAS SBC V 18.9 MEQ/L; CORD GAS TCO2 V 19.5 MEQ/L
[2016-12-19 01:09] LABS: CORD GAS HCO3 A 19.5 MEQ/L; CORD GAS O2 SAT A 16.7 %; CORD GAS PCO2 A 42.8 mmHg; CORD GAS PH A 7.277 UNITS; CORD GAS PO2 A 12.1 mmHg; CORD GAS SBC A 17.1 MEQ/L; CORD GAS TCO2 A 20.8 MEQ/L
[2016-12-19] MEDS ORDERED: MEASLES,MUMPS,RUBELLA VACCINE INJ (MMR-II) (90707) SC SCH (01:15)
[2016-12-19] MEDS ORDERED: DOCUSATE SODIUM 100 MG CAP PO PRN (01:15)
[2016-12-19] MEDS ORDERED: RHOGAM 300 MCG (1500 IU) INJ (J2790) IM SCH (01:15)
[2016-12-19] MEDS ORDERED: MOM 30ML SUSPENSION UDC PO PRN (01:15)
[2016-12-19] MEDS ORDERED: ACETAMINOPHEN 500 MG TAB PO PRN (01:15)
[2016-12-19] MEDS ORDERED: ANUSOL HC CREAM 30GM TOP PRN (01:15)
[2016-12-19] MEDS ORDERED: DIBUCAINE 1% OINTMENT 30GM TOP PRN (01:15)
[2016-12-19] MEDS ORDERED: METHYLERGONOVINE MALEATE 0.2 MG TAB PO PRN (01:15)
[2016-12-19] MEDS: PRENATAL VITAMINS CHEWABLE TABLET PO SCH (08:35)
[2016-12-19] MEDS: IBUPROFEN 800 MG TAB PO PRN ×2 (09:58→21:01)
--- NOTE | 2016-12-19 10:40 | HPE ---
DATE OF ADMISSION: 12/18/2016 A 26-year-old 1, para 0, last menstrual period (LMP) 02/12/2016, estimated date of confinement (EDC) 12/16/2016 at 40 and 2 weeks of gestation, active labor, progressed from 12 hours ago where she was posterior, thick, 1 cm to 100% effaced, anterior, 1 cm, well applied, -2 station in distress because of her contractions, category 1 strip. Risk factors: She has an umbilical hernia, ASCUS, Pap, HPV positive, deaf in her left ear, anxiety, discontinued BuSpar and she has intercostal pain. LABORATORY DATA: O positive, HIV negative, hepatitis negative, RPR negative, rubella immune. Varicella immune. Pap, ASCUS, HPV positive. Urine was negative, G and C were negative. 1-hour glucose was normal. On examination, distressed female. Symphysis fundus height is 40, vertex occiput anterior (OA). Her blood pressure is 117/60, respirations 18, pulse 70, temperature 98.4. Urine 1.005, pH 7, plus ketones, 250 blood. The rest of the examination is unremarkable. She is normocephalic, atraumatic. Neck: Full range of motion. Pupils equal, reactive to light. Distal pulses symmetric. No evidence of deep vein thrombosis (DVT) pulmonary embolism (PE) or superficial phlebitis. Chest is clear bilaterally to bases. No wheezes or rhonchi. No costovertebral angle (CVA) tenderness. Abdomen: Soft. Four quadrant bowel sounds are noted. Appropriate symphysis fundus height and a category one strip. No rashes, lesions or pruritus. No arthritis or arthralgia. No complaints of cough, wheezes, shortness of breath or dyspnea on exertion. No chest pain, not bleeding. Neurologic complete. No incontinency, urgency or frequency. No nausea, vomiting, diarrhea or constipation. No diabetic issues. 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 She does not smoke, drink, or abuse drugs. No known domestic violence. to a soldier. We presently have in active labor at 40 and 2 weeks of gestation requiring hydration, epidural for pain management, Yee catheter and ongoing evaluation and active management of labor. [facility]
--- NOTE | 2016-12-19 16:41 | DN ---
DATE: 12/19/2016 This lady is a 26-year-old 1 admitted in active labor at 40 weeks and two days of gestation. She had an epidural in place, had a spontaneous vaginal delivery of a live female infant weighing 6 pounds, 6 ounces, 2880 grams. scores of 9 and 9 at one and five minutes respectively. Arterial and venous pH were performed. Venous pH was 7.36, base excess is -5.8. Placenta delivered spontaneously thereafter. Three-vessel cord, membranes and tissues intact. She did have a small laceration in the right vulvar area which was oversewn, with a [id number] with a J339 2-0 Vicryl. The rest of the perineum and cervix were intact. The sphincter was intact as well. The uterus contracted well down on Pitocin. The patient and baby tolerating the procedure well.
[2016-12-20 06:32] VITALS: BP 102/58
[2016-12-20 07:30] LABS: MEAN CORPUSCULAR HEMOGLOBIN 29.6 pg (27.0-33.0); MEAN CORPUSCULAR HGB CONC 32.9 g/dl (32.0-36.5); MEAN CORPUSCULAR VOLUME 89.8 fl (80.0-96.0); RED CELL DISTRIBUTION WIDTH 14.2 % (11.5-14.5); WHITE BLOOD COUNT 10.9 K/mm3 (4.0-10.0)
[2016-12-20] MEDS: PRENATAL VITAMINS CHEWABLE TABLET PO SCH (08:01)
[2016-12-20] MEDS: IBUPROFEN 800 MG TAB PO PRN (08:11)
--- NOTE | 2016-12-20 09:39 | IPN ---
DATE OF SERVICE: 12/20/2016 day #1. This lady is a 1 now para 1, Came in in spontaneous labor at 42 weeks of gestation. Delivered a livebirth female weighing 6 pounds 6 ounces, 2880 grams. scores of 9 and 9 at 1 and 5 minutes, respectively. Arterial pH 7.27, base excess -7.0. Venous pH 7.36, base excess -5.8. Her admitting hemoglobin was 10.6, hematocrit 32.6, and platelets were 176. Vital signs: Today, blood pressure is 102/58, respirations 18, pulse 73, temperature 98.0. She had a first-degree tear which was oversewn in the usual fashion, an umbilical hernia which is noncontributory. She is deaf in her left ear, and she suffers from extreme anxiety. We discussed phlebitis, cystitis, mastitis, endometritis, cellulitis, diet, exercise, pain management, perineal, breast, and wound care. She is planning on using an intrauterine contraceptive device (IUCD) at her 6-week checkup. Discharge plans are for tomorrow. Medications will be given at discharge.
[2016-12-20 18:07] VITALS: BP 113/64
[2016-12-21] MEDS: IBUPROFEN 800 MG TAB PO PRN (00:30)
[2016-12-21 05:35] VITALS: BP 111/54
[2016-12-21] MEDS: PRENATAL VITAMINS CHEWABLE TABLET PO SCH (08:09)
[2016-12-21] MEDS ORDERED: ANUS25SU PR (09:44)
[2016-12-21] MEDS ORDERED: MOTR200T44 PO (09:44)
[2016-12-21] MEDS ORDERED: PRENTAB55 PO (09:44)
[2016-12-21] MEDS ORDERED: DIBU1OIN TOP (09:44)
[2016-12-21] MEDS ORDERED: MILKSUS PO (09:44)
[2016-12-21] MEDS ORDERED: COLA100C5 PO (09:44)
== END 2016-12-21 11:50 | disposition home or self-care (01) | DRG 774 ==
LOC: M LDO 11:17 → M LDI 11:41 → M OBS 12-19 14:03
PROVIDERS: ADMIT Obstetrics & Gynecology; ATTEND Obstetrics & Gynecology
PROC: 10E0XZZ Delivery of Products of Conception, External Approach (ICD-10-PCS; principal; 2016-12-19)
PROC: 0HQ9XZZ Repair Perineum Skin, External Approach (ICD-10-PCS; 2016-12-19)
DX: O48.0 Post-term pregnancy (principal); O98.52 Other viral diseases complicating childbirth; O99.62 Diseases of the digestive system complicating childbirth; Z37.0 Single live birth; K42.9 Umbilical hernia without obstruction or gangrene; Z3A.40 40 weeks gestation of pregnancy; R87.820 Cervical low risk human papillomavirus (HPV) DNA test positive; O70.0 First degree perineal laceration during delivery

== ENCOUNTER 2017-03-20 22:44 | Emergency (ER) | payer OTHER ==
[~2017-03-20] VITALS: Ht 160 cm; Wt 61.4 kg
[~2017-03-20 22:44] MED LIST: ACET50TA PO; ANUS25SU PR; BENA25CA4 PO; COLA100C5 PO; DIBU1OIN TOP; MILKSUS PO; MOTR200T44 PO; PRENTAB55 PO
[2017-03-21 00:53] VITALS: BP 114/59
--- NOTE | 2017-03-21 08:14 | REP ---
Clinical: Trauma. Technique: AP and lateral views of the right forearm. Findings: No acute fracture or dislocation. Skeletal structures, joint spaces, and surrounding soft tissues are normal. No subcutaneous emphysema or radiodense foreign body. Impression: Normal right forearm radiographs. No acute fracture or dislocation. Signed by Ryan Reynolds MD 03/21/2017 08:05 A
== END 2017-03-21 00:56 | disposition home or self-care (01) ==
LOC: M ED 22:44
DX: O99.89 Other specified diseases and conditions complicating pregnancy, childbirth and the puerperium (principal); S40.021A Contusion of right upper arm, initial encounter; S40.022A Contusion of left upper arm, initial encounter; S50.11XA Contusion of right forearm, initial encounter; S50.12XA Contusion of left forearm, initial encounter; S20.222A Contusion of left back wall of thorax, initial encounter; S10.93XA Contusion of unspecified part of neck, initial encounter; Y04.8XXA Assault by other bodily force, initial encounter; Y92.9 Unspecified place or not applicable; Y93.9 Activity, unspecified; Y99.9 Unspecified external cause status; Z3A.00 Weeks of gestation of pregnancy not specified; Z88.0 Allergy status to penicillin

== ENCOUNTER 2017-12-11 23:48 | Emergency (ER) | payer OTHER ==
[2017-12-12 00:43] LABS: BASO # 0.1 10^3/uL (0.0-0.2); BASO % 0.6 % (0.0-1.0); EOS # 0.8 10^3/uL (0.0-0.50); EOS % 9.4 % (0.0-3.0); HEMATOCRIT 32.4 % (36.0-47.0); HEMOGLOBIN 10.3 g/dl (12.0-15.5); IMMATURE GRANULOCYTE % 0.3 % (0-3.0); LYMPH # 2.7 10^3/uL (1.5-6.5); LYMPH % 31.8 % (24.0-44.0); MEAN CORPUSCULAR HEMOGLOBIN 26.3 pg (27.0-33.0); MEAN CORPUSCULAR HGB CONC 31.8 g/dl (32.0-36.5); MEAN CORPUSCULAR VOLUME 82.7 fl (80.0-96.0); MONO # 0.6 10^3/uL (0.0-0.8); MONO % 7.1 % (0.0-5.0); NEUTROPHILS # 4.4 10^3/uL (1.8-7.7); NEUTROPHILS % 50.8 % (36.0-66.0); PLATELET COUNT, AUTOMATED 280 10^3/uL (150-450); RED BLOOD COUNT 3.92 10^6/uL (4.00-5.40); RED CELL DISTRIBUTION WIDTH 13.9 % (11.5-14.5); WHITE BLOOD COUNT 8.6 10^3/uL (4.0-10.0)
[2017-12-12] MEDS: MORPHINE 2 MG/ML 1ML SYRINGE (J2270) IV (00:45)
[2017-12-12 00:46] LABS: APPEARANCE, URINE HAZY (CLEAR); BACTERIA, URINE AUTO 1+ (NEGATIVE); BILIRUBIN, URINE AUTO NEGATIVE (NEGATIVE); BLOOD, URINE BLOOD NEGATIVE (NEGATIVE); COLOR, URINE YELLOW (YELLOW); GLUCOSE, URINE (UA) AUTO NEGATIVE (NEGATIVE); KETONE, URINE AUTO NEGATIVE (NEGATIVE); LEUKOCYTE ESTERASE, URINE AUTO 1+ (NEGATIVE); MUCUS, URINE SMALL (NEGATIVE); NITRITE, URINE AUTO NEGATIVE (NEGATIVE); PROTEIN, URINE AUTO NEGATIVE (NEGATIVE); RBC, URINE AUTO 2 /HPF (0-3); SPECIFIC GRAVITY URINE AUTO 1.028 (1.002-1.035); SQUAMOUS EPITHELIAL CELL UR AU 2 /HPF (0-6); UROBILINOGEN, URINE AUTO 0.2 mg/dL (0.0-2.0); WBC, URINE AUTO 12 /HPF (0-3)
[2017-12-12 00:53] LABS: CONTROL LINE HCG INT CTR LINE PRESENT; HCG, SERUM QUALITATIVE NEGATIVE (NEGATIVE)
[2017-12-12 00:59] LABS: ALBUMIN 3.8 GM/DL (3.2-5.2); ALKALINE PHOSPHATASE 93 U/L (45-117); ALT/SGPT 30 U/L (12-78); ANION GAP 9 MEQ/L (8-16); AST/SGOT 32 U/L (7-37); BILIRUBIN,DIRECT < 0.1 MG/DL (0.0-0.2); BILIRUBIN,TOTAL 0.3 MG/DL (0.2-1.0); BLOOD UREA NITROGEN 13 MG/DL (7-18); CALCIUM LEVEL 8.8 MG/DL (8.5-10.1); CARBON DIOXIDE LEVEL 25 MEQ/L (21-32); CHLORIDE LEVEL 110 MEQ/L (98-107); CREATININE FOR GFR 0.65 MG/DL (0.55-1.30); GLOMERULAR FILTRATION RATE > 60.0 (>60); GLUCOSE, FASTING 100 MG/DL (70-100); LIPASE 97 U/L (73-393); POTASSIUM SERUM 3.4 MEQ/L (3.5-5.1); SODIUM LEVEL 144 MEQ/L (136-145)
[2017-12-12] MEDS: NS 1,000 ML IV (01:13)
[2017-12-12] MEDS: LACTULOSE 20 GM/30 ML SYRUP UD PO (02:50)
== END 2017-12-12 02:55 | disposition home or self-care (01) ==
LOC: M ED 23:48
DX: K59.00 Constipation, unspecified (principal); N39.0 Urinary tract infection, site not specified; R11.10 Vomiting, unspecified; K21.9 Gastro-esophageal reflux disease without esophagitis; Z88.0 Allergy status to penicillin; Z79.899 Other long term (current) drug therapy
CPT/HCPCS: J2270

== ENCOUNTER 2018-03-06 08:57 | Day surgery (SDC) | payer OTHER ==
[2018-03-03] MEDS: LR 1,000 ML IV (13:45)
[2018-03-06 09:28] LABS: CONTROL LINE UCG INT CTR LINE PRESENT; URINE PREG TEST NEGATIVE (NEGATIVE)
[2018-03-06] MEDS: BUPIVACAINE/EPIN 0.25% 30 ML VIAL As Ordered (10:28)
[2018-03-06] MEDS ORDERED: dexameTHASONE 4 MG/ML 1ML VIAL (J1100) As Ordered (10:58)
[2018-03-06] MEDS ORDERED: ROCURONIUM BROMIDE 50 MG/5 ML VIAL As Ordered (10:58)
[2018-03-06] MEDS ORDERED: MIDAZOLAM INJ 2 MG/2 ML VIAL (J2250) As Ordered (10:58)
[2018-03-06] MEDS ORDERED: PROPOFOL 200 MG/20 ML VIAL As Ordered (10:58)
[2018-03-06] MEDS ORDERED: LIDOCAINE 2% INJ 100 MG/5 ML SDV (FOR ANES.) As Ordered (10:58)
[2018-03-06] MEDS ORDERED: ONDANSETRON 4MG/2ML VIAL (J2405) As Ordered ×2 (10:58→14:17)
[2018-03-06] MEDS ORDERED: fentaNYL 250 MCG/5 ML INJECTION (J3010) As Ordered (10:58)
[2018-03-06] MEDS ORDERED: KETOROLAC 60 MG/2 ML VIAL (J1885) As Ordered (10:58)
[2018-03-06] MEDS ORDERED: GLYCOPYRROLATE INJ 0.2 MG/ML 2 ML VIAL As Ordered ×2 (10:59)
[2018-03-06] MEDS ORDERED: NEOSTIGMINE 10 MG/10 ML VIAL (J2710) As Ordered (10:59)
[2018-03-06] MEDS: PERCOCET 5MG/325MG TAB PO ×2 (12:14→12:58)
[2018-03-06] MEDS ORDERED: LR 1,000 ML IV (12:15)
[2018-03-06] MEDS ORDERED: fentaNYL 100 MCG/2 ML INJECTION (J3010) IV (12:15)
[2018-03-06] MEDS ORDERED: NORCO, ANEXSIA 5/325MG TABLET (HYDROcodone/ACETAMINOPHEN) PO (12:15)
[2018-03-06] MEDS: ONDANSETRON 4MG/2ML VIAL (J2405) IV (14:20)
== END 2018-03-06 14:58 | disposition home or self-care (01) ==
LOC: M SDC 08:57
DX: K80.10 Calculus of gallbladder with chronic cholecystitis without obstruction (principal); K21.9 Gastro-esophageal reflux disease without esophagitis; Z88.0 Allergy status to penicillin; Z79.899 Other long term (current) drug therapy
CPT/HCPCS: 47562

== ENCOUNTER → 2018-09-20 | Outpatient (REF) | payer OTHER ==
[~2018-09-20] MED LIST changes: -ACET50TA PO; +BACT800T5 PO; +MAPA500T2 PO; +MILK120011 PO; -MILKSUS PO; +OMEP20CA3 PO; +TYLE325T5 PO
[2018-09-20 22:10] LABS: APPEARANCE, URINE CLEAR (CLEAR); BACTERIA, URINE AUTO NEGATIVE (NEGATIVE); BILIRUBIN, URINE AUTO NEGATIVE (NEGATIVE); BLOOD, URINE BLOOD NEGATIVE (NEGATIVE); COLOR, URINE YELLOW (YELLOW); GLUCOSE, URINE (UA) AUTO NEGATIVE (NEGATIVE); KETONE, URINE AUTO NEGATIVE (NEGATIVE); LEUKOCYTE ESTERASE, URINE AUTO NEGATIVE (NEGATIVE); NITRITE, URINE AUTO NEGATIVE (NEGATIVE); PROTEIN, URINE AUTO NEGATIVE (NEGATIVE); RBC, URINE AUTO 0 /HPF (0-3); SPECIFIC GRAVITY URINE AUTO 1.011 (1.002-1.035); SQUAMOUS EPITHELIAL CELL UR AU 3 /HPF (0-6); UROBILINOGEN, URINE AUTO 0.2 mg/dL (0.0-2.0); WBC, URINE AUTO 1 /HPF (0-3)
== END ==
LOC: M LAB REF 10:55
PROVIDERS: ATTEND Physician Assistant
DX: N39.0 Urinary tract infection, site not specified (principal)

== ENCOUNTER → 2025-02-09 | Outpatient (RCR) ==
[~2025-02-09] MED LIST changes: +OMEP1CAP73 PO; -OMEP20CA3 PO
== END ==
LOC: M EMPSKH 01-23 15:04
PROVIDERS: ATTEND Family Medicine
DX: Z20.828 Contact with and (suspected) exposure to other viral communicable diseases (principal)